=== PATIENT | female | born 1940 | race Caucasian/White ===

== ENCOUNTER 2023-12-04 07:14 | Observation (INO) | payer OTHER ==
[2023-12-04] MEDS ORDERED: ACETAMINOPHEN 500 MG TABLET (FP) ONE ×2 (08:31→16:18)
[2023-12-04] MEDS: ACETAMINOPHEN 500 MG TABLET (FP) PO ONE ×2 (08:33→16:23)
[2023-12-04 16:02] LABS: BASO % 0.4 % (0-2.0); EOS % 4.1 % (0-4.5); HEMATOCRIT 38.3 % (32.4-45.2); HEMOGLOBIN 12.7 GM/dL (10.7-15.3); LYMPH % 15.1 % (8-40); MCH 28.9 pg (25.7-33.7); MCHC 33.2 g/dl (32.0-36.0); MEAN CELL VOLUME 87.2 fl (80-96); MEAN PLT VOLUME 9.8 fl (7.5-11.1); MONO % 9.3 % (3.8-10.2); NEUT % 71.1 % (42.8-82.8); PLATELET COUNT 206 10^3/uL (134-434); RBC 4.39 M/mm3 (3.60-5.2); RDW 13.9 % (11.6-15.6); WHITE BLOOD COUNT 6.2 K/mm3 (4.0-10.0)
[2023-12-04 16:12] LABS: INR 0.96 (0.83-1.09); PROTHROMBIN TIME (PATIENT) 11.1 SEC (9.7-13.0)
[2023-12-04 16:15] LABS: ACTIVATED PTT 31.9 SECONDS (25.2-36.5)
[2023-12-04 16:23] LABS: CALCIUM 9.4 mg/dL (8.5-10.1)
[2023-12-04 16:24] LABS: ALBUMIN 3.5 g/dl (3.4-5.0)
[2023-12-04 16:27] LABS: CREATININE 1.2 mg/dL (0.55-1.3)
[2023-12-04 16:28] LABS: BILIRUBIN,TOTAL 0.4 mg/dL (0.2-1); TOT PROT 8.2 g/dl (6.4-8.2)
[2023-12-04] MEDS ORDERED: FAMOTIDINE 20 MG TABLET PO PRN (17:15)
[2023-12-04] MEDS ORDERED: oxyCODONE HCL 5 MG TABLET ONE (17:52)
[2023-12-04] MEDS: oxyCODONE HCL 5 MG TABLET PO SCH (17:57)
[2023-12-04] MEDS: KETOROLAC TROMETHAMINE 15 MG/ML VIAL IVPUSH SCH (21:02)
[2023-12-04] MEDS ORDERED: ACETAMINOPHEN 1000 MG/100 ML BAG IVPB SCH (22:00)
[2023-12-04 22:12] VITALS: RESP 18
[2023-12-04] MEDS: HEPARIN NA (PORCINE) 5,000 UNITS/ML 1ML VIAL SQ SCH (23:03)
[2023-12-04] MEDS: ACETAMINOPHEN 1000 MG/100 ML BAG IVPB SCH (23:04)
[2023-12-05 03:53] VITALS: BMI 27.8
[2023-12-05] MEDS: INSULIN ASPART SLIDING SCALE (NOVOLOG) 1 VIAL SQ SCH (07:03)
[2023-12-05] MEDS: LEVOTHYROXINE NA 88 MCG TABLET (FP) PO SCH (07:03)
[2023-12-05] MEDS ORDERED: METHOCARBAMOL 500 MG TABLET PO PRN (07:48)
[2023-12-05 08:57] LABS: HEMATOCRIT 35.3 % (32.4-45.2); HEMOGLOBIN 11.7 GM/dL (10.7-15.3); MCH 29.1 pg (25.7-33.7); MCHC 33.2 g/dl (32.0-36.0); MEAN CELL VOLUME 87.6 fl (80-96); MEAN PLT VOLUME 9.7 fl (7.5-11.1); PLATELET COUNT 185 10^3/uL (134-434); RBC 4.03 M/mm3 (3.60-5.2); RDW 13.9 % (11.6-15.6); WHITE BLOOD COUNT 5.1 K/mm3 (4.0-10.0)
[2023-12-05] MEDS: amLODIPine BESYLATE 10 MG TABLET (FP) PO SCH (10:54)
[2023-12-05] MEDS: LIDOCAINE 5% TOPICAL PATCH TP SCH (10:55)
[2023-12-05 15:42] VITALS: PULSE 59
[2023-12-05 18:26] VITALS: BP 134/72; TEMP 98.4
[2023-12-05] MEDS ORDERED: LIDOCAINE PATCH REMOVAL MC SCH (22:00)
== END 2023-12-05 18:37 | disposition home health service (06) ==
LOC: JER 07:14 → JERBED 17:02 → J7W 20:53
PROVIDERS: ADMIT Internal Medicine; ATTEND Nurse Practitioner
PROC: 3E033NZ Introduction of Analgesics, Hypnotics, Sedatives into Peripheral Vein, Percutaneous Approach (ICD-10-PCS; principal; 2023-12-04)
PROC: 3E023GC Introduction of Other Therapeutic Substance into Muscle, Percutaneous Approach (ICD-10-PCS; 2023-12-04)
PROC: 3E0333Z Introduction of Anti-inflammatory into Peripheral Vein, Percutaneous Approach (ICD-10-PCS; 2023-12-04)
DX: S22.42XA Multiple fractures of ribs, left side, initial encounter for closed fracture (principal); W06.XXXA Fall from bed, initial encounter; Y93.89 Activity, other specified; Y92.003 Bedroom of unspecified non-institutional (private) residence as the place of occurrence of the external cause; K21.9 Gastro-esophageal reflux disease without esophagitis; E11.9 Type 2 diabetes mellitus without complications; E03.9 Hypothyroidism, unspecified; I10 Essential (primary) hypertension
CPT/HCPCS: 36415; 71046-TC-FY; 71101-TC-LT-FY; 71250-TC; 80053; 82962; 84484; 85025; 85027; 85610; 85730; 93005; 93010; 96372; 96374; 96375; 99285-25; G0378; J0131; J1644